=== PATIENT | female | born 1980 | race Two or more races ===

== ENCOUNTER 2016-10-15 10:30 | Emergency (ER) | payer OTHER ==
--- NOTE | ~2016-10-15 | EKG ---
PATIENT: SILKE BARRIOS UNIT #: [id number] Ventricular Rate: 154 BPM Atrial Rate: 154 BPM P-R Interval: 120 ms QRS Duration: 76 ms Q-T Interval: 320 ms QTC Calculation(Bezet): 512 ms Calculated R [place]: 23 degrees Calculated T [place]: 21 degrees Diagnosis Line: Sinus tachycardia Diagnosis Line: Nonspecific ST abnormality Diagnosis Line: Abnormal ECG Diagnosis Line: When compared with ECG of 15-OCT-2016 10:41, Diagnosis Line: (unconfirmed) Diagnosis Line: No significant change was found Diagnosis Line: Confirmed by BRETT RANDLE MD ([id number]) on Diagnosis Line: 10/17/2016 12:03:37 PM INTERPRETING MD: JER FELICIANO
--- NOTE | ~2016-10-15 | EKG ---
PATIENT: SILKE BARRIOS UNIT #: [id number] Ventricular Rate: 122 BPM Atrial Rate: 122 BPM P-R Interval: 134 ms QRS Duration: 74 ms Q-T Interval: 336 ms QTC Calculation(Bezet): 478 ms P [place]: 51 degrees Calculated R [place]: 20 degrees Calculated T [place]: 14 degrees Diagnosis Line: Sinus tachycardia Diagnosis Line: Otherwise normal ECG Diagnosis Line: No previous ECGs available Diagnosis Line: Confirmed by BRETT RANDLE MD ([id number]) on Diagnosis Line: 10/17/2016 12:03:33 PM INTERPRETING MD: JER FELICIANO
--- NOTE | ~2016-10-15 | CT71 ---
[facility] RADIOLOGY TEXT RESULTS PATIENT: SILKE BARRIOS LOCATION: SED : 78 UNIT #: [id number] AGE: [address]: Salma Catherine MD SEX: F ORDER DR: [id number] [place] [id number] E MR#: [id number] Acc #: [id number] NAME: SILKE BARRIOS : 1980 SEX: F STUDY DATE/TIME: 10/15/2016 11:20 UNIT: SED ROOM: STUDY DESCRIPTION: CT Head Wo Contrast Attending Physician: Salma Catherine M.D. Ordering Physician: Monie Ponce A.P.R.N. MEDICAL IMAGING REPORT This report is preliminary unless electronic signature is present. EXAM CT head without contrast, 10/15/2016. COMPARISON None HISTORY Frontal headaches, dizziness. Noncompliant with hypertensive medications. It is worse today. TECHNIQUE CT of the head was obtained without contrast in the axial plane, as per the protocol. Axial noncontrast images were obtained from the skull base to the vertex. This CT exam was performed with one or more of the following radiation dose reduction techniques: automatic exposure control, adjustment of mA and/or kV according to patient size, and iterative reconstruction. FINDINGS Ventricular size and configuration are normal. There is no evidence of acute infarct or hemorrhage. There are no extraaxial fluid collections. No mass lesion or mass effect is seen. There are no skull fractures. S-shaped nasal septal deviation is noted. There is mild left ethmoid and left sphenoid sinus mucosal thickening. IMPRESSION Normal noncontrast head CT. Dictated by... [facility] RADIOLOGY TEXT RESULTS PATIENT: SILKE BARRIOS LOCATION: SED : 78 UNIT #: [id number] AGE: [address]: Salma Catherine MD SEX: F ORDER DR: Seth Betancur M.D. THIS IS AN ELECTRONICALLY VERIFIED REPORT Seth Betancur M.D. at 10/16/2016 2:57 PM ANDREI/sonia TD: 10/15/2016 12:29 JOB #: [id number] MEDICAL IMAGING REPORT Page 1 of 1
[~2016-10-15 10:30] MED LIST: CHEWABLE ASPIRI81 MG PO; HYDROCHLOROTHIA25 MG PO
[2016-10-15 10:48] LABS: BASOPHIL# 0.1 X10e3 (0-0.3); BASOPHIL% 0.9 % (0-2.5); EOSINOPHIL# 0.1 X10e3 (0-0.7); EOSINOPHIL% 1.3 % (0.0-7.0); HEMATOCRIT 49.9 % (35.0-45.0); HEMOGLOBIN 16.7 gm/dL (12.0-16.0); LYMPHOCYTE# 2.6 X10e3 (1.0-3.5); LYMPHOCYTE% 31.1 % (17.0-45.0); MEAN CELL VOLUME 82.4 FL (83-96); MEAN CORPUSCULAR HEMOGLOBIN 27.5 PG (28-34); MEAN CORPUSCULAR HGB CONC 33.4 g/dL (30-36); MEAN PLATELET VOLUME 6.6 FL (6.5-11.5); MONOCYTE# 0.4 X10e3 (0-1.0); NEUTROPHIL# 5.2 X10e3 (1.5-7.1); NEUTROPHIL% 61.7 % (40-75); PLATELET COUNT 406 X10e3 (140-420); RED BLOOD COUNT 6.06 X10e (3.90-5.30); RED CELL DISTRIBUTION WIDTH 13.7 % (11.0-15.5); WHITE BLOOD COUNT 8.5 X10e3 (4.0-10.5)
[2016-10-15 11:02] LABS: DIFF IND NO
[2016-10-15 11:08] LABS: CALCIUM SERUM 8.8 mg/dL (8.4-10.2); CREATININE SERUM 0.7 mg/dL (0.6-1.4); GLOM FILT RATE Estimated 110.7 mL/min (>60); POTASSIUM 3.8 mmol/L (3.5-5.1)
[2016-10-15 11:17] LABS: MAGNESIUM 2.1 mg/dL (1.6-3.0)
[2016-10-15 11:34] LABS: POC - CKMB 2.1 ng/mL (0.0-7.9); POC - TROPONIN <0.05 ng/mL (<=0.05)
[2016-10-15 11:48] LABS: URINE SOURCE CLEAN CATCH
[2016-10-15 11:51] LABS: URINE APPEARANCE CLEAR; URINE BILIRUBIN NEG (NEG); URINE BLOOD NEG (NEG); URINE COLOR YELLOW; URINE GLUCOSE NEG (NORM); URINE KETONE NEG (NEG); URINE LEUKOCYTE ESTERASE TRACE (NEG); URINE NITRATE NEG (NEG); URINE PROTEIN NEG (NEG); URINE SPECIFIC GRAVITY <=1.005 (1.003-1.035); URINE UROBILINOGEN 0.2 MG/DL (NORM)
[2016-10-15 11:52] LABS: MICRO INDICATED? YES
[2016-10-15 11:57] LABS: URINE BACTERIA NEG (NEG); URINE RBC 0-2 /[HPF] (0-2)
[2016-10-15 11:58] LABS: URINE SQUAMOUS EPITHELIAL CELL FEW /[HPF]
[2016-10-15 12:02] LABS: AMPHETAMINE NEG (NEG); BARBITURATES NEG (NEG); BENZODIAZEPINES NEG (NEG); COCAINE NEG (NEG); MARIJUANA NEG (NEG); OPIATES NEG (NEG); TRICYCLIC ANTIDEPRESSANTS NEG (NEG); U METHADONE NEG (NEG)
== END 2016-10-15 12:50 | disposition home or self-care (01) ==
LOC: SED 10:30
PROVIDERS: Nurse Practitioner; Student in an Organized Health Care Education/Training Program
DX: R51 Headache (principal); G89.29 Other chronic pain; I10 Essential (primary) hypertension; F41.9 Anxiety disorder, unspecified; Z90.49 Acquired absence of other specified parts of digestive tract; Z79.899 Other long term (current) drug therapy
CPT/HCPCS: 36415; 70450; 80048; 80307; 81003; 82553; 83735; 84484; 84703; 85025; 93005; 96361; 96374; 96375; 99284; G0480; J0153; J1200; J2060; J2765

== ENCOUNTER 2016-12-15 18:12 | Emergency (ER) | payer OTHER ==
--- NOTE | ~2016-12-15 | EKG ---
PATIENT: SILKE BARRIOS UNIT #: [id number] Ventricular Rate: 133 BPM Atrial Rate: 133 BPM QRS Duration: 72 ms Q-T Interval: 378 ms QTC Calculation(Bezet): 562 ms Calculated R [place]: 33 degrees Calculated T [place]: 31 degrees Diagnosis Line: Sinus tachycardia Diagnosis Line: Nonspecific T wave abnormality Diagnosis Line: Abnormal ECG Diagnosis Line: When compared with ECG of 15-OCT-2016 10:44, Diagnosis Line: No significant change was found Diagnosis Line: Confirmed by BRETT RANDLE MD ([id number]) on Diagnosis Line: 12/23/2016 8:28:22 AM INTERPRETING MD: JER FELICIANO
[2016-12-15] MEDS ORDERED: FLONASE 0.05% N16 G1 (18:20)
[2016-12-15] MEDS ORDERED: ANTIVERT (18:20)
[2016-12-15] MEDS ORDERED: CETIRIZINE HCL5 M1 (18:20)
[2016-12-15 19:05] LABS: BASOPHIL# 0.2 X10e3 (0-0.3); BASOPHIL% 1.4 % (0-2.5); EOSINOPHIL# 0.3 X10e3 (0-0.7); EOSINOPHIL% 2.9 % (0.0-7.0); HEMATOCRIT 48.1 % (35.0-45.0); HEMOGLOBIN 16.4 gm/dL (12.0-16.0); LYMPHOCYTE% 36.3 % (17.0-45.0); MEAN CELL VOLUME 81.5 FL (83-96); MEAN CORPUSCULAR HEMOGLOBIN 27.8 PG (28-34); MEAN CORPUSCULAR HGB CONC 34.2 g/dL (30-36); MEAN PLATELET VOLUME 6.5 FL (6.5-11.5); MONOCYTE# 0.8 X10e3 (0-1.0); MONOCYTE% 7.6 % (3.0-12.0); NEUTROPHIL# 5.7 X10e3 (1.5-7.1); NEUTROPHIL% 51.8 % (40-75); PLATELET COUNT 490 X10e3 (140-420); RED CELL DISTRIBUTION WIDTH 13.5 % (11.0-15.5); WHITE BLOOD COUNT 10.9 X10e3 (4.0-10.5)
[2016-12-15 19:06] LABS: DIFF IND NO
[2016-12-15 19:22] LABS: ALBUMIN SERUM 4.7 g/dL (3.5-5.0); BILIRUBIN, DIRECT 0.1 mg/dL (0.0-0.2); BILIRUBIN,INDIRECT 0.5 mg/dL (0.0-0.9); BILIRUBIN,TOTAL 0.6 mg/dL (0.2-2.0); CALCIUM SERUM 9.2 mg/dL (8.4-10.2); GLOM FILT RATE Estimated 71.9 mL/min (>60); POTASSIUM 2.9 mmol/L (3.5-5.1); PROTEIN TOTAL SERUM 9.4 g/dL (6.0-8.3)
[2016-12-15 19:27] LABS: POC - TROPONIN <0.05 ng/mL (<=0.05)
== END 2016-12-15 20:42 | disposition home or self-care (01) ==
LOC: SED 18:12
PROVIDERS: Nurse Practitioner Family
DX: E86.0 Dehydration (principal); R00.2 Palpitations; R55 Syncope and collapse; Z90.49 Acquired absence of other specified parts of digestive tract
CPT/HCPCS: 36415; 80048; 80076; 82553; 82947; 84443; 84484; 85025; 93005; 96361; 96374; 99285; J2060

== ENCOUNTER 2016-12-19 15:54 | Emergency (ER) | payer OTHER ==
[~2016-12-19 15:54] MED LIST changes: +ANTIVERT; +CETIRIZINE HCL5 M1; +FLONASE 0.05% N16 G1
== END 2016-12-19 18:26 | disposition home or self-care (01) ==
LOC: CED 15:54
DX: G43.909 Migraine, unspecified, not intractable, without status migrainosus (principal); Z90.49 Acquired absence of other specified parts of digestive tract
CPT/HCPCS: 96361; 96374; 96375; 99284; J1100; J1885; J2765

== ENCOUNTER → 2016-12-31 | Outpatient (CLI) | payer OTHER ==
--- NOTE | ~2016-12-31 | EE ---
Unit #: [id number] #: [id number] Patient: SILKE BARRIOS [id number] [address] [address] [id number] O MR#: [id number] NAME: SILKE BARRIOS : 1980 SEX: F STUDY DATE/TIME: 12/31/2016 UNIT: CEEG ROOM: STUDY DESCRIPTION: Electroencephalogram. Attending Physician: Liliana Ayala M.D. Referring Physician: Liliana Ayala M.D. Primary Care Physician: No Primary Care Physician NEURODIAGNOSTICS REPORT EXAM Electroencephalogram. TECH Jeanie. REASON FOR STUDY Seizure. TECHNICAL INFORMATION This is a routine EEG performed using the standard international 10-20 system of electrode placement. Photic stimulation was performed. Hyperventilation was also performed. REPORT Throughout the entire study the best background rhythm seen was approximately 10 Hz. This rhythm is seen in both posterior head regions symmetrically and does attenuate to eye opening and closure. Hyperventilation was performed, which failed to reproduce any abnormal buildup. Photic stimulation was performed, which did not elicit any epileptiform abnormalities. However, a good photic driving response was seen. There was no sleep recorded during the EEG. Throughout the entire study there were no electrographic seizures recorded, nor were there any independent epileptiform abnormalities seen. INTERPRETATION This is a normal awake EEG. A normal EEG does not rule out the possibility of seizure disorder. Clinical correlation is advised. Dictated by... Demond Valdes II., M.D. GWS/gz TD: 01/01/2017 11:51 JOB #: [id number] Unit #: [id number] #: [id number] Patient: SILKE BARRIOS NEURODIAGNOSTICS REPORT Page 1 of 1 X NEURODIAGNOSTICS REPORT
== END | disposition home or self-care (01) ==
LOC: CEEG 07:18
DX: R55 Syncope and collapse (principal)
CPT/HCPCS: 95816